=== PATIENT | female | born 1965 | race Caucasian/White ===

== ENCOUNTER 2016-10-06 20:52 | Emergency (ER) | payer OTHER ==
--- NOTE | ~2016-10-06 | CR72 ---
[facility] A Service of [facility] & [facility] RADIOLOGY TEXT RESULTS PATIENT: BERNICE BENJAMIN LOCATION: [facility] : 65 UNIT #: [id number] AGE: [address]: Kristin Christian MD SEX: F ORDER DR: [id number] [facility] [address] [place], [place] [address] [id number] E MR#: [id number] Acc #: [id number] NAME: BERNICE BENJAMIN : 1965 SEX: F STUDY DATE/TIME: 10/06/2016 19:02 UNIT: [facility] ROOM: STUDY DESCRIPTION: CR Chest Single View Portable Attending Physician: Kristin Christian M.D. Ordering Physician: Ed Doctor [id number] [facility] Primary Care Physician: Portia Berman M.D. MEDICAL IMAGING REPORT This report is preliminary unless electronic signature is present EXAM AP portable chest 10/06/2016 HISTORY 51-year-old female in the ED complaining of new onset chest pain, shortness of air and congestion today. TECHNIQUE AP portable chest x-ray. FINDINGS The examination is negative. Heart size and pulmonary vascularity are within normal limits. The lungs appear clear. No visible pulmonary infiltrate or pleural effusion. IMPRESSION Negative chest. Dictated by... Vic Aly M.D. THIS IS AN ELECTRONICALLY VERIFIED REPORT Vic Aly M.D. at 10/09/2016 5:59 AM TIFFANY/nato TD: 10/07/2016 13:29 JOB #: [id number] MEDICAL IMAGING REPORT Page 1 of 1 COPY
--- NOTE | ~2016-10-06 | EKG ---
PATIENT: BERNICE BENJAMIN UNIT #: [id number] Ventricular Rate: 109 BPM Atrial Rate: 110 BPM QRS Duration: 84 ms Q-T Interval: 488 ms QTC Calculation(Bezet): 657 ms Calculated R [place]: 28 degrees Calculated T [place]: 43 degrees Diagnosis Line: Sinus tachycardia Diagnosis Line: Prolonged QT Diagnosis Line: Abnormal ECG Diagnosis Line: When compared with ECG of 06-AUG-2015 13:53, Diagnosis Line: Vent. rate has increased BY 41 BPM Diagnosis Line: QT has lengthened Diagnosis Line: Confirmed by COLLIN MANUEL MD ([id number]) on 10/08/2016 Diagnosis Line: 7:08:26 AM INTERPRETING MD: KALEB ROMO
--- NOTE | ~2016-10-06 | CT16 ---
[facility] A Service of [facility] RADIOLOGY TEXT RESULTS PATIENT: BERNICE BENJAMIN LOCATION: [facility] : 65 UNIT #: [id number] AGE: [address]: Kristin Christian MD SEX: F ORDER DR: [id number] [facility] [address] [place], [place] [address] [id number] E MR#: [id number] Acc #: [id number] NAME: BERNICE BENJAMIN : 1965 SEX: F STUDY DATE/TIME: 10/06/2016 21:34 UNIT: [facility] ROOM: STUDY DESCRIPTION: CT Angio Chest for PE Attending Physician: Kristin Christian M.D. Ordering Physician: Kristin Christian M.D. Primary Care Physician: Portia Berman M.D. MEDICAL IMAGING REPORT This report is preliminary unless electronic signature is present EXAM CT chest with contrast, pulmonary arteriography protocol, 10/06/2016 HISTORY 51-year-old female in the ED complaining of 1-day history of inspiratory chest pain. Left leg swelling. TECHNIQUE This CT exam was performed with one or more of the following radiation dose reduction techniques: automatic exposure control, adjustment of mA and/or kV according to patient size, and iterative reconstruction. CT examination of the chest with IV contrast using pulmonary arteriography protocol. 3-D CTA images of the pulmonary arteries were reformatted in multiple planes. FINDINGS No pulmonary embolism is demonstrated. Thoracic aorta is normal in caliber with no aneurysm or dissection. The lungs appear clear, there is no pleural or pericardial effusion. No suspicious mass or adenopathy within the chest. IMPRESSION Negative chest CT examination using pulmonary arteriography protocol. Dictated by... Vic Aly M.D. THIS IS AN ELECTRONICALLY VERIFIED REPORT Vic Aly M.D. at 10/09/2016 5:59 AM RGW/alex [facility] A Service of [facility] RADIOLOGY TEXT RESULTS PATIENT: BERNICE BENJAMIN LOCATION: [facility] : 65 UNIT #: [id number] AGE: [address]: Kristin Christian MD SEX: F ORDER DR: TD: 10/07/2016 18:30 JOB #: [id number] MEDICAL IMAGING REPORT Page 1 of 1 COPY
--- NOTE | ~2016-10-06 | US85 ---
[facility] A Service of [facility] RADIOLOGY TEXT RESULTS PATIENT: BERNICE BENJAMIN LOCATION: [facility] : 65 UNIT #: [id number] AGE: [address]: Kristin Christian MD SEX: F ORDER DR: [id number] [facility] [address] [place], [place] [address] [id number] E MR#: [id number] Acc #: [id number] NAME: BERNICE BENJAMIN : 1965 SEX: F STUDY DATE/TIME: 10/06/2016 21:12 UNIT: [facility] ROOM: STUDY DESCRIPTION: [facility] Attending Physician: Kristin Christian M.D. Ordering Physician: Kristin Christian M.D. Primary Care Physician: Portia Berman M.D. MEDICAL IMAGING REPORT This report is preliminary unless electronic signature is present EXAM Venous Doppler ultrasound examination, left leg, 10/06/2016 HISTORY A 51-year-old female in the ED complaining of 3-day history of left lower extremity pain and swelling. TECHNIQUE Venous Doppler ultrasound examination of the left leg using laureano-scale, spectral Doppler and color flow Doppler ultrasound imaging. FINDINGS The examination is negative. There is no evidence of DVT from the groin to the lower calf. Greater saphenous vein is patent. Incidentally noted Barriga's cyst in the popliteal space measuring about 2.6 cm in length. IMPRESSION 1. NO negative examination. No evidence of left lower extremity DVT. 2. Small Barriga's cyst in the popliteal space.. Dictated by... Vic Aly M.D. THIS IS AN ELECTRONICALLY VERIFIED REPORT Vic Aly M.D. at 10/09/2016 5:59 AM TIFFANY/alex TD: 10/07/2016 18:09 JOB #: [id number] [facility] A Service of [facility] RADIOLOGY TEXT RESULTS PATIENT: BERNICE BENJAMIN LOCATION: [place] : 65 UNIT #: [id number] AGE: [address]: Kristin Christian MD SEX: F ORDER DR: MEDICAL IMAGING REPORT Page 1 of 1 COPY
[2016-10-06 19:30] LABS: BASOPHIL% 0.6 % (0-2.5); EOSINOPHIL# 0.1 X10e3 (0-0.7); HEMATOCRIT 40.6 % (35.0-45.0); HEMOGLOBIN 13.3 gm/dL (12.0-16.0); LYMPHOCYTE# 1.8 X10e3 (1.0-3.5); LYMPHOCYTE% 28.6 % (17.0-45.0); MEAN CELL VOLUME 88.7 FL (83-96); MEAN CORPUSCULAR HEMOGLOBIN 29.1 PG (28-34); MEAN CORPUSCULAR HGB CONC 32.8 g/dL (30-36); MEAN PLATELET VOLUME 7.5 FL (6.5-11.5); MONOCYTE# 0.4 X10e3 (0-1.0); MONOCYTE% 6.5 % (3.0-12.0); NEUTROPHIL% 63.3 % (40-75); PLATELET COUNT 218 X10e3 (140-420); RED BLOOD COUNT 4.58 X10e (3.90-5.30); RED CELL DISTRIBUTION WIDTH 12.9 % (11.0-15.5); WHITE BLOOD COUNT 6.3 X10e3 (4.0-10.5)
[2016-10-06 19:34] LABS: DIFF IND NO
[2016-10-06 19:50] LABS: ALBUMIN SERUM 3.9 g/dL (3.5-5.0); ALKALINE PHOSPHATASE 105 U/L (32-92); ALT (SGPT) 15 U/L (10-40); AST (SGOT) 19 U/L (10-42); BILIRUBIN,TOTAL 0.5 mg/dL (0.2-2.0); BLOOD UREA NITROGEN 8 mg/dL (9-23); BUN/CREATININE RATIO 11.42; CALCIUM SERUM 8.9 mg/dL (8.4-10.2); CARBON DIOXIDE 26 mmol/L (22-31); CHLORIDE 106 mmol/L (100-111); CREATININE SERUM 0.7 mg/dL (0.6-1.4); GLOM FILT RATE Estimated 100.3 mL/min (>60); GLUCOSE FASTING 135 mg/dL (70-110); POTASSIUM 4.1 mmol/L (3.5-5.1); PROTEIN TOTAL SERUM 6.6 g/dL (6.0-8.3); SODIUM 139 mmol/L (135-145)
[2016-10-06 19:52] LABS: BILIRUBIN, DIRECT <0.1 mg/dL (0.0-0.2); BILIRUBIN,INDIRECT 0.4 mg/dL (0.0-0.9)
[2016-10-06 20:28] LABS: POC - CKMB 3.9 ng/mL (0.0-7.9); POC - TROPONIN <0.05 ng/mL (<=0.05)
[~2016-10-06 20:52] MED LIST: ACIPHEX20 MG PO; AMBIEN10 MG PO; BENTYL20 MG PO; BUSPIRONE HCL10 MG PO; CLIDINIUM-CDP C1 CAP PO; ESTRACE1 MG PO; EXCEDRIN EXTRA1 TAB PO; FLUOXETINE HCL40 M1 PO; GAS-X125 M1 PO; HYOSCYAMINE0.125 M1 SL; LANSOPRAZOLE30 M3 PO; LEVSIN-SL0.125 MG SL; LYRICA75 MG PO; METHADONE HCL10 MG PO; NAPROXEN PO; OXYCODONE HCL15 MG PO; PHENERGAN12.5 MG PO; PREMARIN0.45 MG PO; PREVACID PO; PROMETHAZINE12.5 MG PO; REGLAN10 MG PO; ROXICODONE15 MG PO; SOMA PO; SYNTHROID125 PO; SYNTHROID137 MCG PO; SYNTHROID88 MCG PO; TOPAMAX PO; TOPIRAMATE100 MG PO; WELLBUTRIN PO; WELLBUTRIN SR150 MG PO
[2016-10-06 20:56] LABS: POC - CKMB 3.7 ng/mL (0.0-7.9); POC - TROPONIN <0.05 ng/mL (<=0.05)
== END 2016-10-06 22:10 | disposition home or self-care (01) ==
LOC: CED 20:52
PROVIDERS: Student in an Organized Health Care Education/Training Program
DX: R07.89 Other chest pain (principal); M71.22 Synovial cyst of popliteal space [Baker], left knee; Z90.710 Acquired absence of both cervix and uterus; Z88.6 Allergy status to analgesic agent; Z88.0 Allergy status to penicillin
CPT/HCPCS: 36415; 71010; 71275; 80048; 80076; 82553; 84484; 85025; 85610; 85730; 93005; 93971; 96360; 99284; Q9967